=== PATIENT | male | born 1965 | race Caucasian/White ===

== ENCOUNTER → 2017-12-28 | Outpatient (CLI) | payer OTHER ==
[~2017-12-28] MED LIST: ATOR10TA65 PO; ESOM40CA42 PO; EXEN2PEN SC; LEVO50TA86 PO; METF-420 PO; OXYC-373 PO
--- NOTE | 2017-12-28 16:26 | RADIOLOGY IMAGING REPORT ---
FACILITY: [facility] [place] PATIENT NAME: Kris Wilcox : 1965 MR: [id number] V: [id number] EXAM DATE: ORDERING PHYSICIAN: MADHU RICHARDSON TECHNOLOGIST: Location: [facility] [place] Patient: Kris Wilcox : 1965 Visit/Account:[id number] Date of Sevice: 12/28/2017 Exam type: CHEST PA AND LAT History: Bronchitis, pleuritic chest pain and cough Comparison: December 25, 2015. Findings: The lungs are free of acute effusions, infiltrates or edema. There is very mild peribronchial thicke meera although appears similar to the prior study. There is no evidence of a pneumothorax or pneumome diastinum. The cardiac silhouette is normal in size. IMPRESSION: 1. Very mild chronic peribronchial thickening appears similar to the prior study Report Dictated By: Erendira Berman MD at 12/28/2017 4:20 PM Report E-Signed By: Erendira Berman MD at 12/28/2017 4:22 PM WSN:[email or web address]
== END ==
LOC: RAD 14:50
PROVIDERS: ATTEND Nurse Practitioner Family
DX: R91.8 Other nonspecific abnormal finding of lung field (principal)
CPT/HCPCS: 71046

== ENCOUNTER → 2018-05-12 | Outpatient (CLI) | payer OTHER ==
[~2018-05-12] MED LIST changes: -METF-420 PO; +METF-421 PO
[2018-05-12 11:05] LABS: PLATELET COUNT, AUTOMATED 162 K/uL (150-450)
[2018-05-12 11:27] LABS: LDL CHOLESTEROL 74 mg/dl
== END ==
LOC: LAB 10:47
PROVIDERS: ATTEND Nurse Practitioner Family
DX: Z00.00 Encounter for general adult medical examination without abnormal findings (principal); E11.9 Type 2 diabetes mellitus without complications; E03.9 Hypothyroidism, unspecified; E78.5 Hyperlipidemia, unspecified; G47.30 Sleep apnea, unspecified
CPT/HCPCS: 36415; 82040; 82247; 82310; 82374; 82435; 82465; 82565; 82947; 83036; 83718; 84075; 84132; 84155; 84295; 84443; 84450; 84460; 84478; 84520; 85025